=== PATIENT | female | born 1940 | race Caucasian/White ===

== ENCOUNTER → 2017-06-03 07:33 | Outpatient (CLI) | payer MEDICARE, OTHER ==
[~2017-06-03] VITALS: Ht 170.2 cm; Wt 92.3 kg
--- NOTE | ~2017-06-03 | HEMODYNAMI ---
PATIENT:LJ HUGHES MEDICAL RECORD: [id number] : 38 LOCATION:[facility] ADMISSION DATE: 06/03/17 Generatedon:06/03/201711:27 Patient name: JL HUGHES Patient #: [id number] SSN: : 1940 Date of study: 06/03/2017 Page: Of Hemodynamic Procedure Report Patient Data Patient Demographics Procedure consent was obtained First Name: JL Gender: Female Last Name: ELLEN : 1940 [facility] Initial: RUPALI Age: 77 year(s) Patient #: [id number] Race: Additional ID: [id number] Contact details [address]: [address] [place] [address] State: [place] City: [place] Zip code: [address] Past Medical History Allergies: No known allergies Admission Admission Data Admission Date: 06/03/2017 Admission Time: 7:33 Lab Results Lab Result Date: 06/03/2017 Lab Result Time: 0:00 Biochemistry Name Units Result Min Max BUN mg/dl 22 --(----)-* 7 18 Creatinine mg/dl 0.9 --(-*--)-- 0.6 1.3 CBC Name Units Result Min Max Hemoglobin g/dl 12.3 *-(----)-- 13.5 17.5 Procedure Procedure Types Cath Procedure Diagnostic Procedure C [facility] w/Coronaries FFR/IVUS Intra-Coronary IVUS Initial Procedure Description Procedure Date Procedure Date: 06/03/2017 Procedure Start Time: 11:11 Procedure End Time: 11:26 Procedure Staff Name Function Toan Zurita MD Performing Physician Joya Delacruz RT Monitor Edgar Rosen RT Scrub Kimo Morel RN Nurse Procedure Data Cath Procedure Fluoroscopy Diagnostic fluoroscopy Total fluoroscopy Time: 2.1 time: 2.1 min min Diagnostic fluoroscopy Total fluoroscopy dose: 307 dose: 307 mGy mGy Contrast Material Contrast Material Type Amount (ml) Isovue 300 58 Entry Location Entry Primary Successful Side Size Upsize Upsize Entry Closure Estevez ccessful Closure Location (Fr) 1 (Fr) 2 (Fr) Remarks Device Remarks Radial Right 6 Fr Mechanical artery Short Compression Estimated blood loss: 5 ml Diagnostic catheters Device Type Used For End Catheter Placement DIAGNOSTIC Summit 110cm 5 Procedure Fr catheter ([id number]) Procedure Complications No complications Procedure Medications Medication Administration Route Dosage Oxygen etCO2 Nasal cannula 2 l/min Heparin Flush Bag added to field 2 bags (1000units/500ml NS) 0.9% NaCl I.V. 100 ml/hr Radial Cocktail added to field 1 syringe (Verapomil 2mg/Nitro 400mcg/Heparin 1500units) Fentanyl I.V. 50 mcg Versed I.V. 1 mg Fentanyl I.V. 50 mcg Versed I.V. 1 mg Radial Cocktail I.A. 1 syringe (Verapomil 2mg/Nitro 400mcg/Heparin 1500units) Fentanyl I.V. 50 mcg Fentanyl I.V. 50 mcg Hemodynamics Rest HGB: 12.3 (g/dl) Heart Rate: 63 (bpm) Snapshots Pre Cath Intra NCS Post Cath Vital Signs Time Heart Resp SPO2 etCO2 NIBP (mmHg) Rhythm Pain Sedation Rate (ipm) (%) (mmHg) Status Level (bpm) 10:08:32 67 16 96 160/75(122) NSR 0 (11) 10(A) , No pain 10:13:20 67 16 97 0 146/66(119) NSR 0 (11) 10(A) , No pain 10:18:46 64 17 100 39.8 137/74(102) NSR 0 (11) 10(A) , No pain 10:24:08 55 17 100 37.6 147/72(99) NSR 0 (11) 10(A) , No pain 10:28:56 67 16 100 37.6 144/62(98) NSR 0 (11) 10(A) , No pain 10:33:43 53 16 99 34.5 117/58(96) NSR 0 (11) 10(A) , No pain 10:38:28 50 16 99 38.3 128/55(87) NSR 0 (11) 10(A) , No pain 10:43:12 66 17 99 37.6 124/59(89) NSR 0 (11) 10(A) , No pain 10:47:59 61 16 99 38.3 134/54(84) NSR 0 (11) 10(A) , No pain 10:52:46 73 16 99 38.3 132/62(105) NSR 0 (11) 10(A) , No pain 10:57:31 68 16 99 37.6 129/68(89) NSR 0 (11) 10(A) , No pain 11:02:13 66 16 97 0 106/67(85) NSR 0 (11) 10(A) , No pain 11:06:54 67 17 97 0 120/61(93) NSR 0 (11) 10(A) , No pain 11:11:37 69 17 96 38.3 116/62(97) NSR 0 (11) 9(A) , No pain 11:16:17 72 16 94 0 116/54(86) NSR 0 (11) 9(A) , No pain 11:20:29 74 17 95 39.1 112/57(83) NSR 0 (11) 9(A) , No pain 11:25:10 74 15 96 44.3 128/60(95) NSR 0 (11) 9(A) , No pain Medications Time Medication Route Dose Verified Delivered Reason Notes Effectiveness by by 10:29:16 Oxygen etCO2 2 l/min Toan Cristobal Per Nasal Yudith Hughes RN physician cannula 10:29:26 Heparin Flush added 2 bags Toan Cristobal used for Bag to Yudith Hughes RN procedure (1000units/500ml field NS) 10:30:02 0.9% NaCl I.V. 100 Toancitlali Cristobal Per ml/hr Yudith Hughes RN physician 10:30:15 Radial Cocktail added 1 Toan Levar used for (Verapomil to syringe Yudith Hughes RN procedure 2mg/Nitro field 400mcg/Heparin 1500units) 11:10:12 Fentanyl I.V. 50 mcg Toan Cristobal for sedation Yudith Hughes RN 11:11:00 Versed I.V. 1 mg Toan Cristobal for sedation Yudith Hughes RN 11:12:36 Fentanyl I.V. 50 mcg Toan Cristobal for sedation Yudith Hughes RN 11:12:40 Versed I.V. 1 mg Toan Cristobal for sedation Yudith Hughes RN 11:12:48 Radial Cocktail I.A. 1 Toan Joya for (Verapomil syringe Yudith Zurita MD vasodilation 2mg/Nitro 400mcg/Heparin 1500units) 11:14:21 Fentanyl I.V. 50 mcg Toan Cristobal for sedation Yudith Hughes RN 11:16:40 Fentanyl I.V. 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 9:36:33 Patient allergic to No known allergies 9:37:42 Lab Result : BUN 22 mg/dl 9:37:42 Lab Result : Hemoglobin 12.3 g/dl 9:37:42 Lab Result : Creatinine 0.9 mg/dl 9:39:48 Edgar ALICEA(R) sent for patient. Start room use. 9:39:56 Time tracking: Regular hours (M-F 7:00 - 5:00) 9:40:00 Plan of Care:Hemodynamics will remain stable., Cardiac rhythm will remain stable., Comfort level will be maintained., Respiratory function will remain adequate., Patient/ family verbilizes understanding of procedure., Procedure tolerated without complication., Recovers from procedure without complications.. 9:56:54 Is patient on blood thinner?Yes 9:57:09 LAST DOSE OF ELIQUIS ON THE 9:59:45 Patient received from Pre/Post Procedure Room to CCL 1 Alert and oriented. Tansferred to table in Supine position. 9:59:54 Warm blankets applied, and chris hugger turned on for patient comfort. 9:59:54 Correct patient and procedure confirmed by team. 9:59:55 ECG and BP/O2 sat monitors applied to patient. 10:07:32 Vital chart was started 10:07:33 Baseline sample Acquired. 10:07:39 Rhythm: sinus rhythm 10:07:41 Full Disclosure recording started 10:11:08 Baseline sample Acquired. 10:11:16 Pre-procedure instructions explained to patient. 10:11:16 Pre-op teaching completed and patient verbalized understanding. 10:11:19 Family in patients room. 10:11:22 Patient NPO since Midnight. 10:11:24 Is the patient allergic to Iodine/contrast media? No. 10:11:31 Patient diabetic? No. 10:11:34 Previous problem with sedation/anesthesia? No ? 10:11:35 Snore? Yes 10:11:36 Sleep apnea? No 10:11:37 Deviated septum? No 10:11:38 Opens mouth fully? Yes 10:11:39 Sticks out tongue? Yes 10:11:41 Airway obstruction? No ? 10:11:43 Dentures? No ? 10:11:49 Modified Elías's test Ulnar < 7 seconds 10:11:51 Patient pain scale 0/10 ?. 10:12:01 IV patent on arrival in left forearm with 0.9% NaCl at [facility]. 10:12:04 Lab results completed and on chart. 10:12:05 Alarms reviewed by R. N. 10:12:06 Sharps counted by scrub and verified by R.N. 10:12:11 Use device set Radial Dx or PCI 10:12:12 ACIST Syringe (68207) opened to sterile field. 10:12:13 ACIST Hand Control (73188) opened to sterile field. 10:12:14 ACIST Manifold (87584) opened to sterile field. 10:12:14 Tegaderm 4 x 4 (1626W) opened to sterile field. 10:12:17 Bag Decanter (2002S) opened to sterile field. 10:12:18 Medline Cath Pack ([id number]) opened to sterile field. 10:12:19 DIAGNOSTIC WIRE .035 260cm J wire (886780) opened to sterile field. 10:12:20 MBrace Wrist Support (412909992) opened to sterile field. 10:12:22 SHEATH 6Fr Prelude Radial ([id number]) opened to sterile field. 10:23:38 Zero performed for pressure channel P1 10:29:16 Oxygen 2 l/min etCO2 Nasal cannula was administered by Levar Hughes RN; Per physician; 10:29:26 Heparin Flush Bag (1000units/500ml NS) 2 bags added to field was administered by Levar Hughes RN; used for procedure; 10:30:02 0.9% NaCl 100 ml/hr I.V. was administered by Levar Hughes RN; Per physician; 10:30:15 Radial Cocktail (Verapomil 2mg/Nitro 400mcg/Heparin 1500units) 1 syringe added to field was administered by Levar Hughes RN; used for procedure; :42 --------ALL STOP TIME OUT------ : Final Timeout: patient, procedure, and site verified with staff and physician. All members of the team are in agreement. 11:09:44 Right Radial & Right Groin site verified by team. 11::47 Physical assessment completed. ASA score P 2 - A patient with mild systemic disease as per Toan Zurita MD. 11:09:51 Sedation plan: IV Moderate Sedation Medication:Versed, Fentanyl 11:10:12 Fentanyl 50 mcg I.V. was administered by Levar Hughes RN; for sedation; 11::24 LONG WAIT DUE TO DR. QUEVEDO PREVIOUS CASE 11:10:28 Procedure started. 11:11:00 Versed 1 mg I.V. was administered by Levar Hughes RN; for sedation; 11:11:25 Local anesthetic to right radial artery with Lidocaine 2% by Toan Zurita MD.INITIAL ACCESS ONLY 11:12:05 A 6 Fr Short sheath was inserted into the Right Radial artery 11:12:36 Fentanyl 50 mcg I.V. was administered by Levar Hughes RN; for sedation; 11:12:40 Versed 1 mg I.V. was administered by Levar Hughes RN; for sedation; 11:12:48 Radial Cocktail (Verapomil 2mg/Nitro 400mcg/Heparin 1500units) 1 syringe I.A. was administered by Toan Zurita MD; for vasodilation; 11:13:00 A DIAGNOSTIC Summit 110cm 5 Fr catheter (301647) was advanced over the wire and used for Procedure. 11:13:19 LV gram done using MCCLOUD 11:13:23 Injector settings: Ml/sec: 7, Volume: 15, 11:13:52 EF : 55 % 11:14:04 LCA angiography performed. 11:14:21 Fentanyl 50 mcg I.V. was administered by Levar Hughes RN; for sedation; 11:15:13 RCA angiography performed. 11:15:41 Catheter removed. 11:15:52 CHOICE PT Extra Support 182cm wire ([id number]) opened to sterile field. 11:15:58 INFLATOR Merit BasixCompak (TK3230) opened to sterile field. 11:16:36 GUIDE 6FR XBLAD 3.5 catheter ([id number]) opened to sterile field. 11:16:40 Fentanyl 50 mcg I.V. was administered by Levar Hughes RN; for sedation; 11:16:51 6 Fr XBLAD 3.5 guide catheter was inserted over the wire 11:17:14 CHOICE ES 182 wire advanced. 11:17:25 Wire advanced across lesion. 11:17:29 IVUS catheter advanced over wire. 11:18:53 Gilbert [place] Eagleye IVUS Catheter (88880X) opened to sterile field. 11:18:58 IVUS PASS TO THE OSTIUM OF THE LAD AND THE CIRC LESION PERFORMED 11:18:58 IVUS pass to LAD lesion performed. 11:18:59 IVUS catheter removed over wire. 11:19:10 Wire removed. 11:19:11 Guide catheter removed. 11:19:18 Procedure ended.(Physican Out) 11:23:01 Sheath removed intact; hemostasis achieved with Mechanical Compression to the Right Radial artery. 11:23:07 Fluoroscopy time 02.10 minutes. 11:23:11 Fluoroscopy dose: 307 mGy 11:23:11 Flurop Dose total: 307 11:23:19 Contrast amount:Isovue 300 58ml. 11:23:20 Sharps counted by scrub and verified by R.N. 11:23:22 TR band inflated with 10cc of air. 11:23:54 Insertion/operative site no bleeding no hematoma. 11:23:58 Post-procedure physical assessment completed. ASA score P 2 - A patient with mild systemic disease as per Toan Zurita MD. 11:24:02 Post procedure rhythm: unchanged. 11:24:03 Estimated blood loss: 5 ml 11:24:05 Post procedure instruction explained to patient.Patient verbalizes understanding. 11:24:05 Patient needs reinforcement of post procedure teaching. 11:24:16 Procedure type changed to Cath procedure, Diagnostic procedure, LHC, LHC w/Coronaries, FFR/IVUS, Intra-Coronary IVUS Initial 11:26:14 TR BAND Standard ([id number]) opened to sterile field. 11:26:19 Procedure and supply charges have been captured, reviewed, submitted and are correct. 11:26:21 Procedure Complication : No complications 11:26:24 Vital chart was stopped 11::24 See physician's report for complete and final results. 11::26 Report given to Pre/Post Procedure Room. 11::29 Patient transfered to Pre/Post Procedure Room with Bed. 11::30 Procedure ended. 11::30 Full Disclosure recording stopped 11::35 End room use (Document Last) Device Usage Item Name Manufacture Quantity Catalog Number Hospital Part Current M inimal Lot# / Charge Number Stock Stock Serial# Code ACIST Syringe Acist 1 70485 207338 [id number] 2 0 (27821) Medical Systems Right On Interactive ACIST Hand Acist 1 83865 601877 112819 108032 5 Control (70327) Medical Systems Right On Interactive ACIST Manifold Acist 1 62193 355505 031551 916328 5 (50718) Medical Systems Right On Interactive Tegaderm 4 x 4 3M 1 1626W 695003 782590 510570 5 (1626W) Bag Decanter Microtek 1 2001S 133122 78699 915784 5 (2001S) [employer] Inc. Medline Cath Cardinal 1 [id number] 148833 33474 218811 5 Pack Health ([id number]) DIAGNOSTIC WIRE St Tj 1 914276 238823 187217 453922 3 0 .035 260cm J wire (888273) MBrace Wrist Advanced 1 140-0250-00 278322 19530 853508 5 Support Vascular ([id number]) Dynamics SHEATH 6Fr Merit 1 [id number] 415285 957432 313494 5 Prelude Radial Medical ([id number]) DIAGNOSTIC Terumo 1 40-9793 937996 797173 641527 5 Summit 110cm 5 Fr catheter (609715) CHOICE PT Extra [place] 1 [id number] 037401 684118 583716 5 Support 182cm Scientific wire ([id number]) INFLATOR Merit Merit 1 JN8916 632452 431741 790968 1 5 BasixQRxPharma Medical (PM7298) GUIDE 6FR XBLAD Cardinal 1 [id number] 773617 488635 899947 1 0 3.5 catheter Health (92048753) Gilbert Gilbert 1 97038T 310628 876134 054016 8 [place] Eagley[place] IVUS Catheter (04376U) TR BAND Terumo 1 [id number] 400488 645270 970396 4 0 Standard ([id number]) Signature Audit [place] Stage Time Signature Unsigned Intra-Procedure 06/03/2017 Joya Delacruz 11:27:33 AM RT(R) Signatures Monitor : Joya Delacruz Signature : RT Date : Time : [place] [address] [place] [address]
--- NOTE | ~2017-06-03 | HP ---
PATIENT: JL HUGHES MEDICAL RECORD: [id number] ACCOUNT: [id number] LOCATION:[place] : 38 ADMISSION DATE: 06/03/17 HISTORY AND PHYSICAL EXAMINATION ADMITTING DIAGNOSES: 1. Chest pain compatible with angina. 2. Abnormal nuclear stress test. 3. Hypertension. 4. Paroxysmal atrial fibrillation. HISTORY OF PRESENT ILLNESS: Ms. Hughes presents with continued chest pain despite having good control of her atrial fibrillation in sinus rhythm. Stress testing was performed. She has perfusion defect that is anteriorly and laterally, now brought for cardiac catheterization. REVIEW OF SYSTEMS: The patient reports easy bruising but reports no swollen glands. The patient reports no fever, no night sweats, no significant weight gain, no significant weight loss. No significant exercise tolerance. The patient reports no dry eyes, no irritation, no vision change. Patient reports no difficulty hearing and no ear pain. Patient reports no frequent nose bleeds or nose and sinus problems. Patient reports on arm pain on exertion. No shortness of breath while lying down. No history of heart murmur. Patient reports no cough, no wheezing or coughing up blood. Patient reports no abdominal pain, no vomiting. Normal appetite. No diarrhea and not vomiting blood. No nausea and no constipation. Patient reports no incontinence. No difficulty urinating. No hematuria. No increased frequency. Patient reports no muscle aches. No weakness, no arthralgias, no back pain. No swelling of the extremities. Patient reports no abnormal mole, no jaundice, no rashes. Reports no loss of consciousness. No weakness and no numbness. No seizures, dizziness, or headaches. The patient reports no depression, no sleep disturbance, feeling safe in a relationship and no alcohol abuse. Patient reports on fatigue. Reports no runny nose or sinus pressure. No itching, no hives, and no frequent sneezing. PHYSICAL EXAMINATION: GENERAL APPEARANCE: Well-nourished, well-developed, appears stated age. Level of distress, comfortable. PSYCHIATRIC: Mental status, alert, normal affect. Orientation, oriented to time, place and person. EYES: Lids and conjunctiva, noninjected. No discharge, no pallor. ENT: Lips, teeth, gums, normal dentition. Oropharynx, no cyanosis, no pallor. NECK: Carotid arteries, bilateral normal upstroke, no bruits, no thrills. JUGULAR VEINS: No jugular venous pressure or distention. CERVICAL LYMPH NODES: Nontender, nonenlarged. THYROID: Not enlarged. Nontender. No nodules. LUNGS: Respiratory effort, unlabored. CHEST: Normal curvature. No thoracic deformity. No chest wall tenderness. Percussion, resonant. Auscultation, clear. No wheezes, no rales, no rhonchi. CARDIOVASCULAR: Precordial exam, nondisplaced. No heaves or pericardial thrills. Rate and rhythm, regular. Heart sounds, normal S1, normal S2. No S3, no gallop, no rub. Systolic murmur, not heard. Diastolic murmur, not heard. EXTREMITIES: No cyanosis, no edema. Peripheral pulses, full and equal in all extremities, except as noted. No bruits appreciated. ABDOMEN: Soft, nondistended. Normal aorta. No bruit. Nontender. No masses. HISTORY AND PHYSICAL [id number] [id number] Liver, nontender, no hepatomegaly. Spleen, nontender, no splenomegaly. MUSCULOSKELETAL: No joint tenderness. No joint swelling. No erythema. NEUROLOGICAL: Normal gait, normal strength, normal tone. SKIN: Warm and dry. OVERALL IMPRESSION: Chest pain compatible with angina and abnormal nuclear stress test. We will proceed with coronary angiography. Further care depends upon the findings of the angiography. TRANSINT:[id number] Voice Confirmation ID: [id number] DOCUMENT ID: [id number] DENEEN FOSTER MD at 1351 CC: [id number] DICTATION DATE: 06/03/17 1121 SOLAR SALES AMBASSADOR: 06/03/17 [address] [place] [address]
--- NOTE | ~2017-06-03 | OP ---
PATIENT NAME: JL HUGHES MEDICAL RECORD: [id number] :38 LOCATION:D.CAT ADMISSION DATE: SURGEON: DENEEN FOSTER MD DATE OF OPERATION: 06/03/2017 PROCEDURES: 1. Intravascular ultrasound of left circumflex. 2. Intravascular ultrasound of the LAD. 3. Left heart catheterization. 4. Selective coronary angiography. 5. Left ventriculogram. INDICATION: Angina, coronary artery disease, abnormal nuclear stress test. DESCRIPTION OF PROCEDURE: After informed consent was obtained and after a detailed description of risks, benefits as well as alternative therapies, the patient elected to proceed with angiogram and heart catheterization. The right radial area was prepped and draped in normal sterile fashion. Right radial artery was cannulated via modified Seldinger technique with placement of 6-Jamaican sheath. All catheters exchanged through this sheath. FINDINGS: Left ventriculogram was performed in standard 30-degree MCCLOUD view, reveals good cardiac wall motion throughout all segments. Overall ejection fraction estimated 60%. SELECTIVE CORONARY ANGIOGRAPHY: 1. Left main is with no significant angiographic disease. 2. Left anterior descending has no greater than 10% stenosis at the ostium confirmed by intravascular ultrasound. 3. The left circumflex has no greater than 10% stenosis at the ostium confirmed by intravascular ultrasound. The LAD and circumflex elsewise have no significant disease. 4. Right coronary artery has moderate irregularities, but no flow-limiting stenosis. OVERALL IMPRESSION: No significant coronary artery disease is present. Normal LV function. Center medical management on treatment of noncardiac chest pain. TRANSINT:[id number] Voice Confirmation ID: [id number] DOCUMENT ID: [id number] DENEEN FOSTER MD at 1351 CC: [id number] DICTATION DATE: 06/03/17 1122 COMMISSION SALES ASSOCIATE: 06/03/17 [id number] [place] [address]
[~2017-06-03 07:33] MED LIST: AMBIEN5 MG PO; BETAPACE 80 MG80 MG PO; BIOTIN5 MG PO; CALTRATE 600 M600 M1 PO; CELEBREX200 MG PO; ELIQUIS5 MG PO; LASIX20 MG PO; LISINOPRIL10 MG PO; NEURONTIN 400400 MG PO; OMEGA-3100 MG PO; PRILOSEC20 MG PO; TRAZODONE HCL50 MG PO; VITAMIN D2000 UNIT PO
[2017-06-03 08:22] VITALS: BP 142/63; Ht 170.2 cm; Wt 92.3 kg
[2017-06-03 08:36] LABS: EOSINOPHILS 3.1 % (0-7); HEMATOCRIT 38.5 % (36.0-48.0); HEMOGLOBIN 12.3 g/dL (12-16); IMMATURE GRANULOCYTES 0.3 % (0-5); MCH 28.9 pg (26.0-34.0); MCHC 31.9 g/dL (31.0-37.0); MCV 90.4 fL (80.0-100.0); MONOCYTES 14.4 % (2-11); NEUTROPHILS 55.2 % (40-80); PLATELET COUNT 174 10x3/uL (130-400); RBC 4.26 10x6/uL (4.00-5.40); RDW 14.3 % (11.5-14.5); WBC 6.2 10x3/uL (4.8-10.8)
[2017-06-03 08:47] LABS: ANION GAP 12.2 mmol/L (8-16); CALCIUM 8.6 mg/dL (8.5-10.1); CARBON DIOXIDE 27.3 mmol/L (21.0-32.0); CREATININE - SERUM 0.9 mg/dL (0.6-1.3); POTASSIUM - SERUM 4.5 mmol/L (3.5-5.1)
== END | disposition home or self-care (01) ==
LOC: D.CATH 07:33
PROVIDERS: Internal Medicine Interventional Cardiology
DX: I20.9 Angina pectoris, unspecified (principal); R94.30 Abnormal result of cardiovascular function study, unspecified; I10 Essential (primary) hypertension; I48.0 Paroxysmal atrial fibrillation; Z01.812 Encounter for preprocedural laboratory examination

== ENCOUNTER 2017-11-13 16:10 | Emergency (ER) | payer MEDICARE, OTHER ==
[~2017-11-13] VITALS: Ht 170.2 cm; Wt 90.9 kg
[2017-11-13 16:15] VITALS: Ht 170.2 cm; Wt 90.9 kg
[2017-11-13 17:31] LABS: BASOPHILS 0.8 % (0-2); HEMATOCRIT 33.5 % (36.0-48.0); HEMOGLOBIN 10.9 g/dL (12-16); IMMATURE GRANULOCYTES 0.5 % (0-5); LYMPHOCYTES 24.3 % (15-50); MCH 30.4 pg (26.0-34.0); MCHC 32.5 g/dL (31.0-37.0); MCV 93.6 fL (80.0-100.0); MEAN PLATELET VOLUME 9.2 fL (7.4-10.4); MONOCYTES 12.3 % (2-11); NEUTROPHILS 59.1 % (40-80); PLATELET COUNT 164 10x3/uL (130-400); RBC 3.58 10x6/uL (4.00-5.40); RDW 13.6 % (11.5-14.5); WBC 6.3 10x3/uL (4.8-10.8)
[2017-11-13 17:38] LABS: APTT 27.4 SECONDS (22.8-39.4); INR 1.17 (0.85-1.17); PROTIME 14.5 SECONDS (11.6-15.0)
[2017-11-13 17:45] LABS: ALBUMIN 2.8 g/dL (3.4-5.0); ALKALINE PHOSPHATASE 41 U/L (46-116); ALT (SGPT) 16 U/L (10-68); BILIRUBIN - TOTAL 0.22 mg/dL (0.2-1.3); CALC OSMOLALITY 282 mosm/kg (275-300); CALCIUM 8.1 mg/dL (8.5-10.1); CARBON DIOXIDE 29.1 mmol/L (21.0-32.0); CHLORIDE - SERUM 106 mmol/L (98-107); CREATININE - SERUM 0.8 mg/dL (0.6-1.3); GLUCOSE 104 mg/dL (74-106); POTASSIUM - SERUM 4.3 mmol/L (3.5-5.1); PROTEIN - SERUM 6.1 g/dL (6.4-8.2); SODIUM 141 mmol/L (136-145); UREA NITROGEN 19 mg/dL (7-18); eGFR NON AFRICAN AMERICAN 73 mL/min (90-120)
[2017-11-13 17:50] LABS: APPEARANCE CLEAR (CLEAR); BILIRUBIN NEGATIVE (NEGATIVE); COLOR STRAW (YELLOW); GLUCOSE NEGATIVE (NEGATIVE); KETONE NEGATIVE (NEGATIVE); NITRITE NEGATIVE (NEGATIVE); PROTEIN NEGATIVE (NEGATIVE); SPECIFIC GRAVITY 1.005 (1.005-1.020); UROBILINOGEN NORMAL (NORMAL)
[2017-11-13 17:54] LABS: MAGNESIUM - SERUM 1.9 mg/dL (1.8-2.4); PRO BNP 1202 pg/mL (0-450)
[2017-11-13 17:59] LABS: TROPONIN-I < 0.017 ng/mL (0.000-0.060)
[2017-11-13] MEDS ORDERED: NORCO 5/325 TAB1 TAB PO (18:30)
[2017-11-13] MEDS ORDERED: ROBAXIN500 MG PO (18:30)
[2017-11-13 19:02] VITALS: BP 142/51
== END 2017-11-13 19:02 | disposition home or self-care (01) ==
LOC: D.ER 16:10
PROVIDERS: Family Medicine
DX: S00.83XA Contusion of other part of head, initial encounter (principal); S80.02XA Contusion of left knee, initial encounter; S80.01XA Contusion of right knee, initial encounter; W18.31XA Fall on same level due to stepping on an object, initial encounter; Y93.89 Activity, other specified; Y92.019 Unspecified place in single-family (private) house as the place of occurrence of the external cause; D64.9 Anemia, unspecified; M54.2 Cervicalgia; I11.0 Hypertensive heart disease with heart failure; I50.9 Heart failure, unspecified; I73.9 Peripheral vascular disease, unspecified

== ENCOUNTER 2018-08-20 16:50 | Inpatient (IN) | payer MEDICARE, OTHER ==
[~2018-08-20] VITALS: Ht 170.2 cm; Wt 95.6 kg
[2018-08-20] VITALS (9 sets, daily range): BP systolic 108–165; BP diastolic 71–108; BMI 33.9
[~2018-08-20 16:50] MED LIST changes: +NORCO 5/325 TAB1 TAB PO; +ROBAXIN500 MG PO
[2018-08-20 17:17] LABS: BASOPHILS 0.5 % (0-2); EOSINOPHILS 0.9 % (0-7); HEMATOCRIT 40.5 % (36.0-48.0); HEMOGLOBIN 12.8 g/dL (12-16); IMMATURE GRANULOCYTES 0.3 % (0-5); LYMPHOCYTES 6.9 % (15-50); MCH 29.6 pg (26.0-34.0); MCHC 31.6 g/dL (31.0-37.0); MCV 93.8 fL (80.0-100.0); MEAN PLATELET VOLUME 10.6 fL (7.4-10.4); MONOCYTES 9.3 % (2-11); NEUTROPHILS 82.1 % (40-80); RBC 4.32 10x6/uL (4.00-5.40); RDW 13.7 % (11.5-14.5); WBC 7.4 10x3/uL (4.8-10.8)
[2018-08-20 17:28] LABS: PLATELET COUNT 129 10x3/uL (130-400)
[2018-08-20 17:46] LABS: ALBUMIN 3.4 g/dL (3.4-5.0); ALKALINE PHOSPHATASE 61 U/L (46-116); ALT (SGPT) 24 U/L (10-68); BILIRUBIN - TOTAL 0.71 mg/dL (0.2-1.3); CALC OSMOLALITY 284 mosm/kg (275-300); CARBON DIOXIDE 28.6 mmol/L (21.0-32.0); CHLORIDE - SERUM 106 mmol/L (98-107); CREATININE - SERUM 0.9 mg/dL (0.6-1.3); GLUCOSE 143 mg/dL (74-106); POTASSIUM - SERUM 4.4 mmol/L (3.5-5.1); PROTEIN - SERUM 7.1 g/dL (6.4-8.2); SODIUM 140 mmol/L (136-145); UREA NITROGEN 23 mg/dL (7-18); eGFR NON AFRICAN AMERICAN 64 mL/min (90-120)
[2018-08-20 17:50] LABS: APTT 27.7 SECONDS (22.8-39.4); INR 1.32 (0.85-1.17); PROTIME 15.9 SECONDS (11.6-15.0)
[2018-08-20 17:58] LABS: CKMB 1.3 U/L (0.0-3.6); CREATINE KINASE 60 UL (21-215); PRO BNP 7427 pg/mL (0-450); TROPONIN-I 0.023 ng/mL (0.000-0.060)
[2018-08-20] MEDS ORDERED: DONEPEZIL HCL10 MG PO (21:57)
[2018-08-20] MEDS ORDERED: ROCALTROL0.5 MCG PO (21:57)
[2018-08-20] MEDS ORDERED: ALENDRONAT70 MG/75 M PO (21:58)
[2018-08-20] MEDS ORDERED: COREG6.25 MG PO (21:59)
--- NOTE | 2018-08-20 23:01 | NUR ---
ADMISSION ASESSMENT, HISTORY AND HOME MED LIST COMPLETED. IV TO L WRIST WITH CARDIZEM DRIP AT 10MG/HR AND BUMEX DRIPA T 1MG/HR. IV PATENT. LUNGS DIMINISHED IN BASES BILAT. PT CONFUSED. CAF PER CM HR 99. VSS. SR UP X2,CALL LIGHT WITHIN REACH AND BED ALARM ON.
[2018-08-21] VITALS: BP 127/68
--- NOTE | 2018-08-21 00:07 | NUR ---
ASSISTED PT TO BSC. PT CONFUSED AND UNSTEADY ON FEET. VOIDED 600CC OF CLEAR URINE. ASSISTED BACK TO BED. SR UP X2, CALL LIGHT WITHIN REACH AND BED ALARM ON.
--- NOTE | 2018-08-21 01:54 | NUR ---
PT AWAKE; DENIES ANY DISCOMFORT. SR UP X2, CALL LIGHT WITHIN REACH AND BED ALARM ON.
[2018-08-21 04:00] VITALS: BP 115/61
--- NOTE | 2018-08-21 04:11 | NUR ---
ASSISTED TO BSC. VOIDED 500CC OF CLEAR URINE. ASSISTED BACK TO BED. SR UP X2,CALL LIGHT WITHIN REACH AND BED ALARM ON.
[2018-08-21 05:22] LABS: BASOPHILS 0.7 % (0-2); EOSINOPHILS 1.7 % (0-7); HEMATOCRIT 40.9 % (36.0-48.0); HEMOGLOBIN 13.2 g/dL (12-16); IMMATURE GRANULOCYTES 0.5 % (0-5); LYMPHOCYTES 10.8 % (15-50); MCH 29.6 pg (26.0-34.0); MCHC 32.3 g/dL (31.0-37.0); MONOCYTES 17.5 % (2-11); NEUTROPHILS 68.8 % (40-80); PLATELET COUNT 124 10x3/uL (130-400); RBC 4.46 10x6/uL (4.00-5.40); RDW 13.7 % (11.5-14.5)
[2018-08-21 05:24] LABS: MCV 91.7 fL (80.0-100.0)
--- NOTE | 2018-08-21 05:33 | NUR ---
EKG DONE. PT UNABLE TO BE STILL. PT ASSISTED TO BSC. VOIDED 600CC OF CLEAR URINE. ASSISTED BACK TO BED. PT STATES BREATHING MUCH BETTER THIS AM. NEEDS MET; WILL CONTINUE TO MONITOR.
[2018-08-21 05:51] LABS: CALC OSMOLALITY 288 mosm/kg (275-300); CALCIUM 8.5 mg/dL (8.5-10.1); CARBON DIOXIDE 34.8 mmol/L (21.0-32.0); CHLORIDE - SERUM 100 mmol/L (98-107); CREATININE - SERUM 0.9 mg/dL (0.6-1.3); GLUCOSE 104 mg/dL (74-106); PRO BNP 8246 pg/mL (0-450); SODIUM 144 mmol/L (136-145); TROPONIN-I < 0.017 ng/mL (0.000-0.060); UREA NITROGEN 18 mg/dL (7-18); eGFR NON AFRICAN AMERICAN 64 mL/min (90-120)
[2018-08-21 05:54] LABS: POTASSIUM - SERUM 3.3 mmol/L (3.5-5.1)
--- NOTE | 2018-08-21 07:24 | NUR ---
REPORT RECEIVED. WILL CONTINUE WITH POC. PT CURRENTLY LYING SEMI FOWLERS. CALL LIGHT W/I REACH. FAMILY AT BEDSIDE. RR EVEN AND UNLABORED ON 4L 02. BUMEX INFUSING @2.5 AND CARDIZEM INFUSING @10 VIA L.WRIST PIV. NO S/S OF DISTRESS NOTED. PT DENIES ANY NEEDS AT THIS TIME. WILL CTM.
[2018-08-21 09:12] VITALS: BP 126/63
--- NOTE | 2018-08-21 10:39 | NUR ---
PREVIOUS PIV INFILTRATED. REMOVED PIV WITH CATHETER TIP FULLY INTACT. JAMES SHER INITIATED NEW PIV TO THE LEFT WRIST 22 GA. RESTARTED CARDIZEM AND BUMEX. WILL CTM.
--- NOTE | 2018-08-21 14:39 | MORECARE ---
CASE MANAGEMENT DISCHARGE SUMMARY PATIENT: JL HUGHES UNIT: [id number] ADM DATE: 08/20/18 AGE: 78 : 39 SEX: F ROOM/BED: D.3607 AUTHOR: DOUGLAS,DOC PHYSICIAN: REFERRING PHYSICIAN: SEBAS DE LA CRUZ MD DATE OF SERVICE: 08/21/18 Discharge Plan Patient Name: JL HUGHES [facility] : 1940 Planned Disposition: Home Anticipated Discharge Date: Discharge Date: Expected LOS: Initial Reviewer: [email or web address] Initial Review Date: 08/21/2018 Generated: 08/21/18 3:38 pm DCP- Discharge Planning Updated by [email or web address]: Sophia Larson on 08/21/18 1:[address] Patient Name: JL HUGHES Admission Status: ER Accout number: [id number] Admission Date: 08-20-2018 : 1940 Admission Diagnosis: Attending: SEBAS DE LA CRUZ Current LOS: 1 Anticipated DC Date: Planned Disposition: Home Primary Insurance: MEDICARE A & B Discharge Planning Comments: CM met with patient to complete initial dc planning assessment. CM educated patient on the CM role and verbal consent given by patient to complete assessment. CM verified patient's address, phone number, and emergency contact phone numbers. Patient lives at home alone and reports she is independent in her care. At discharge patient plans to return home and feels this is a safe discharge. CM discussed availability of home health, rehab services, and medical equipment. Patient denied known discharge needs at this time.. . CM will continue to follow and will assist as needed with dc plans/needs. Paperboard Machine Operator: Sophia Larson DCPIA - Discharge Planning Initial Assessment Updated by [email or web address]: Sophia Larson on 08/21/18 2:37 pm * Is the patient Alert and Oriented? Yes * How many steps to enter\exit or inside your home? * PCP combs * [facility] * Preadmission Environment Home with Family * ADLs Independent * Equipment Walker * List name and contact numbers for known caregivers / representatives who currently or will assist patient after discharge: friend Sandie [phone] * Verbal permission to speak to the caregivers and representatives has been obtained from the patient. Yes * Additional services required to return to the preadmission environment? No * Can the patient safely return to the preadmission environment? Yes * Has this patient been hospitalized within the prior 30 days at any hospital? No Patient Name: JL HUGHES Page [id number] at 1439 All edits/amendments must be made on the electronic document DICTATION DATE: 08/21/181437 CHEF ASSISTANT: SARAI 08/21/181437 RPT#: [id number] DC DATE: STATUS: ADM IN [facility] [address] [place] [address] END OF REPORT
[2018-08-21 15:42] VITALS: BP 130/71
--- NOTE | 2018-08-21 16:35 | NUR ---
I have reviewed this patient and I concur with the Shift Assessment completed by the Licensed Practical Nurse today this shift.
[2018-08-21 16:49] LABS: MAGNESIUM - SERUM 1.6 mg/dL (1.8-2.4); T4 THYROXIN - FREE 1.22 ng/dL (0.76-1.46); THYROID STIMULATING HORMONE 3.15 uIU/mL (0.36-3.74)
--- NOTE | 2018-08-21 19:15 | NUR ---
ASSESSMENT COMPLETE. PT A&O. RESPERATIONS EVEN ON RA. IV TO LEFT WRIST WITH CARDIZEM AT 10 AND BEMEX AT 2.5 CC/HR. IV SITE CLEAN AND DRY. PT CURRENTLY DENIES PAIN OR NEEDS, BED LOW, CL IN REACH.
--- NOTE | 2018-08-21 19:42 | NUR ---
NOTIFIED BY MT THAT PTS HR WAS INCREASING UP INTO THE 170-180 RANGE, ENTERED ROOM AND PT WAS AMBULATING FROM HER BED TO THE BR. PT STATED THAT SHE FELT FINE, OFFERED PT ASSISTANCE BACK TO BED, PT DECLINED AT THIS TIME, AND STATED THAT SHE WILL CALL IF NEEDING ANY HELP.
--- NOTE | 2018-08-21 21:11 | NUR ---
HS MEDS GIVEN WITH FRESH ICE WATER. PT DENIES PAIN OR NEEDS.
[2018-08-21 21:12] VITALS: BP 125/69
--- NOTE | 2018-08-21 22:38 | NUR ---
PT UP TO BR.
[2018-08-22] VITALS: BP 104/68
[2018-08-22 04:00] VITALS: BP 113/70
[2018-08-22 08:45] VITALS: BP 124/62
--- NOTE | 2018-08-22 09:16 | NUR ---
PT HEART RATE PER TELEMETRY 143-180 UNCONTROLLED A-FIBB. INCREASED CARDIZEM DRIP TO 15ML/HR. WILL CONTINUE TO MONITOR.
[2018-08-22 11:29] VITALS: BP 126/65
--- NOTE | 2018-08-22 14:53 | NUR ---
PT COMPLAINS MAG IS BURNING. IV STOPPED. PRN MAG GIVEN. WILL CONTINUE TO MONITOR.
[2018-08-22 15:05] VITALS: BP 124/72
--- NOTE | 2018-08-22 17:45 | NUR ---
RESTS IN BED WITH CALL LIGHT IN REACH. CARDIAEM GTT INFUSING. TELEMETRY UCAF. WILL CONT. TO MONITOR.
--- NOTE | 2018-08-22 19:01 | NUR ---
UP WITH ASSIST TO BR.
--- NOTE | 2018-08-22 19:28 | NUR ---
ASSESSMENT COMPLETE, A&O. RESPERATIONS EVEN ON RA. IV TO LEFT WRIST WITH CARDIZEM INFUSING AT 15 AND BUMEX AT 2.5 CC/HR. PT CURRENTLY DENIES PAIN OR NEEDS, BED LOW, CL IN REACH.
--- NOTE | 2018-08-22 21:06 | NUR ---
HS MEDS GIVEN WITH FRESH ICE WATER. PT DENIES PAIN OR NEEDS.
[2018-08-22 22:14] VITALS: BP 137/89
[2018-08-23 01:01] VITALS: BP 113/79
--- NOTE | 2018-08-23 02:37 | NUR ---
RESTING WITH EYES CLOSED, RESPERATIONS EVEN, NO S/S DISTRESS NOTED.
[2018-08-23 05:16] VITALS: BP 107/60
[2018-08-23 06:57] LABS: BASOPHILS 0.7 % (0-2); EOSINOPHILS 3.3 % (0-7); HEMATOCRIT 42.1 % (36.0-48.0); HEMOGLOBIN 13.7 g/dL (12-16); IMMATURE GRANULOCYTES 0.3 % (0-5); LYMPHOCYTES 30.7 % (15-50); MCH 29.5 pg (26.0-34.0); MCHC 32.5 g/dL (31.0-37.0); MCV 90.7 fL (80.0-100.0); MEAN PLATELET VOLUME 9.6 fL (7.4-10.4); MONOCYTES 17.6 % (2-11); NEUTROPHILS 47.4 % (40-80); RBC 4.64 10x6/uL (4.00-5.40); WBC 6.7 10x3/uL (4.8-10.8)
[2018-08-23 07:14] LABS: PLATELET COUNT 156 10x3/uL (130-400)
[2018-08-23 07:17] LABS: ANION GAP 10.9 mmol/L (8-16); CARBON DIOXIDE 33.2 mmol/L (21.0-32.0); CREATININE - SERUM 1.3 mg/dL (0.6-1.3); MAGNESIUM - SERUM 1.9 mg/dL (1.8-2.4); POTASSIUM - SERUM 3.1 mmol/L (3.5-5.1)
--- NOTE | 2018-08-23 07:52 | NUR ---
REPORT RECIEVED. PT LYING SEMI FOWLERS RR EVEN AND UNLABORED. PT ON 3L NC. NO DISTRESS NOTED. SIDE RAILS UP X2, CALL LIGHT WITHIN REACH. L WRIST PIV INFUSING CARDIZEM @ 15 AND BUMEX @ 2.5. WILL CTM.
[2018-08-23 08:41] VITALS: BP 116/65
[2018-08-23 12:04] VITALS: BP 123/71
--- NOTE | 2018-08-23 12:23 | NUR ---
I have reviewed this patient and I concur with the Shift Assessment completed by the Licensed Practical Nurse today this shift.
[2018-08-23 14:24] LABS: APPEARANCE CLEAR (CLEAR); BILIRUBIN NEGATIVE (NEGATIVE); COLOR YELLOW (YELLOW); GLUCOSE NEGATIVE (NEGATIVE); KETONE NEGATIVE (NEGATIVE); NITRITE NEGATIVE (NEGATIVE); PROTEIN NEGATIVE (NEGATIVE); UROBILINOGEN NORMAL (NORMAL)
[2018-08-23 15:46] VITALS: BP 119/62
--- NOTE | 2018-08-23 16:51 | NUR ---
NEW PIV INITIATED TO THE RIGHT HAND 22 GA X1 ATTEMPT. REMOVED PREVIOUS PIV WITH CATHETER TIP FULLY INTACT. PT DENIES ANY NEEDS. WILL CTM.
[2018-08-23 20:00] VITALS: BP 117/69
[2018-08-24] VITALS: BP 114/54
[2018-08-24 04:00] VITALS: BP 96/53
[2018-08-24 06:00] LABS: BASOPHILS 0.8 % (0-2); EOSINOPHILS 4.7 % (0-7); IMMATURE GRANULOCYTES 0.3 % (0-5); LYMPHOCYTES 32.1 % (15-50); MCH 29.3 pg (26.0-34.0); MCHC 32.5 g/dL (31.0-37.0); MCV 90.3 fL (80.0-100.0); MEAN PLATELET VOLUME 9.7 fL (7.4-10.4); MONOCYTES 15.9 % (2-11); NEUTROPHILS 46.2 % (40-80); PLATELET COUNT 152 10x3/uL (130-400); RBC 4.43 10x6/uL (4.00-5.40); RDW 13.7 % (11.5-14.5); WBC 6.2 10x3/uL (4.8-10.8)
[2018-08-24 06:32] LABS: ANION GAP 9.5 mmol/L (8-16); CALCIUM 7.7 mg/dL (8.5-10.1); CARBON DIOXIDE 35.7 mmol/L (21.0-32.0); CREATININE - SERUM 1.1 mg/dL (0.6-1.3); MAGNESIUM - SERUM 1.9 mg/dL (1.8-2.4); POTASSIUM - SERUM 3.2 mmol/L (3.5-5.1)
--- NOTE | 2018-08-24 07:30 | NUR ---
ALERT AND ORIENTED. TELEMERTY SHOWS AFIB 86. FORGETFUL AT TIMES. O2 AT 3 L/M PER NC. IV TO RIGHT LUCAS WITH CARDIZEM AT 15 AND BUMEX AT 2.5. LEGGS DISCOLORED BELOW CALVES. BED ALARM ON. FAMILY AT BEDSIDE. SR UP WITH CALL LIGHT IN REACH. WILL MONITOR
[2018-08-24 08:49] VITALS: BP 119/70
[2018-08-24 12:25] VITALS: BP 116/82
--- NOTE | 2018-08-24 12:27 | NUR ---
I have reviewed this patient and I concur with the Shift Assessment completed by the Licensed Practical Nurse today this shift.
[2018-08-24 16:39] VITALS: BP 118/74
--- NOTE | 2018-08-24 16:40 | MORECARE ---
CASE MANAGEMENT DISCHARGE SUMMARY PATIENT: JL HUGHES UNIT: [id number] ADM DATE: 08/20/18 AGE: 78 : 39 SEX: F ROOM/BED: D.3010 AUTHOR: DOUGLAS,DOC PHYSICIAN: REFERRING PHYSICIAN: SEBAS DE LA CRUZ MD DATE OF SERVICE: 08/24/18 Discharge Plan Patient Name: JL HUGHES Facility: [facility]:[place] : 1940 Planned Disposition: Home Anticipated Discharge Date: Discharge Date: Expected LOS: Initial Reviewer: [email or web address] Initial Review Date: 08/21/2018 Generated: 08/24/18 5:39 pm DCP- Discharge Planning Updated by [id number]: Sophia Larson on 08/21/18 1:[address] Patient Name: JL HUGHES Admission Status: ER Accout number: [id number] Admission Date: 08-20-2018 : 1940 Admission Diagnosis: Attending: SEBAS DE LA CRUZ Current LOS: 1 Anticipated DC Date: Planned Disposition: Home Primary Insurance: MEDICARE A & B Discharge Planning Comments: CM met with patient to complete initial dc planning assessment. CM educated patient on the CM role and verbal consent given by patient to complete assessment. CM verified patient's address, phone number, and emergency contact phone numbers. Patient lives at home alone and reports she is independent in her care. At discharge patient plans to return home and feels this is a safe discharge. CM discussed availability of home health, rehab services, and medical equipment. Patient denied known discharge needs at this time.. . CM will continue to follow and will assist as needed with dc plans/needs. Plastic Parts Designer: Sophia Larson DCPIA - Discharge Planning Initial Assessment Updated by [email or web address]: Sophia Larson on 08/21/18 2:37 pm * Is the patient Alert and Oriented? Yes * How many steps to enter\exit or inside your home? * [facility] combs [facility] * Preadmission Environment Home with Family * ADLs Independent * Equipment Walker * List name and contact numbers for known caregivers / representatives who currently or will assist patient after discharge: friend Sandie [phone] * Verbal permission to speak to the caregivers and representatives has been obtained from the patient. Yes * Additional services required to return to the preadmission environment? No * Can the patient safely return to the preadmission environment? Yes * Has this patient been hospitalized within the prior 30 days at any hospital? No External Providers External Provider: [facility] Next Contact Date: 08/24/2018 Service Request Date: Service Type: Resolution: Reviewer: Comments: Last DP export: 08/21/18 1:39 p Patient Name: JL HUGHES Page [phone] at 1640 All edits/amendments must be made on the electronic document DICTATION DATE: 08/24/181638 COLLEGE ARCHIVIST: SARAI 08/24/181638 RPT#: [id number] DC DATE: STATUS: ADM IN [facility] [address] [place] [address] END OF REPORT
--- NOTE | 2018-08-24 16:48 | MORECARE ---
CASE MANAGEMENT DISCHARGE SUMMARY PATIENT: JL HUGHES UNIT: [id number] ADM DATE: 08/20/18 AGE: 78 : 39 SEX: F ROOM/BED: D.7752 AUTHOR: DOUGLAS,DOC PHYSICIAN: REFERRING PHYSICIAN: SEBAS DE LA CRUZ MD DATE OF SERVICE: 08/24/18 Discharge Plan Patient Name: JL HUGHES Facility: [facility]:[place] : 1940 Planned Disposition: Fdc Facility Anticipated Discharge Date: Discharge Date: Expected LOS: Initial Reviewer: [email or web address] Initial Review Date: 08/21/2018 Generated: 08/24/18 5:47 pm Comments DCP- Discharge Planning Updated by [email or web address]: Cornelio Pennington on 08/24/18 3:[address] Patient Name: JL HUGHES Encounter No: [id number] : 1940 Primary Insurance: MEDICARE A & B Anticipated DC Date: Planned Disposition: Fdc Facility External Planned Provider: [facility], MEDICARE REHAB BED DCP follow-up note: CM RECEIVED REQUEST TO SPEAK TO PT AND DAUGHTER IN ROOM. PT PROVIDED PERMISSION TO SPEAK REGARDING HER DISCHARGE PLANNING AND CARE. PT'S DAUGHTER IN LAW, SAM HUGHES, WELL PT, FEEL PT NEEDS REHAB. CM DISCUSSED INPATIENT REHAB AND [facility]. PT WANTS REFERRAL CLOSE TO HER HOME, REQUESTED [facility]ERRAL TO [facility]. CHOICE SIGNED. IMPORTANT MESSAGE FROM MEDICARE PROVIDED AND EXPLAINED. CM FAXED REFERRAL TO [facility] AT [phone]. CM CALLED [facility], , LEFT MESSAGE FOR CATE OF ADMISSIONS NOTIFYING OF REFERRAL FOR REHAB SERVICES. CM WAITING ADMISSION DETERMINATION FROM [facility] FOR REHAB SERVICES. Cornelio Pennington DCP- Discharge Planning Updated by [id number]: Sophia Larson on 08/21/18 1:[address] Patient Name: JL HUGHES Admission Status: ER Accout number: [id number] Admission Date: 08-20-2018 : 1940 Admission Diagnosis: Attending: SEBAS DE LA CRUZ Current LOS: 1 Anticipated DC Date: Planned Disposition: Home Primary Insurance: MEDICARE A & B Discharge Planning Comments: CM met with patient to complete initial dc planning assessment. CM educated patient on the CM role and verbal consent given by patient to complete assessment. CM verified patient's address, phone number, and emergency contact phone numbers. Patient lives at home alone and reports she is independent in her care. At discharge patient plans to return home and feels this is a safe discharge. CM discussed availability of home health, rehab services, and medical equipment. Patient denied known discharge needs at this time.. . CM will continue to follow and will assist as needed with dc plans/needs. Career Services Assistant: Sophia Larson DCPIA - Discharge Planning Initial Assessment Updated by [email or web address]: Sophiamalick Perryman on 08/21/18 2:37 pm * Is the patient Alert and Oriented? Yes * How many steps to enter\exit or inside your home? * [facility] combs [facility] * Preadmission Environment Home with Family * ADLs Independent * Equipment Walker * List name and contact numbers for known caregivers / representatives who currently or will assist patient after discharge: sid Hooper [phone] * Verbal permission to speak to the caregivers and representatives has been obtained from the patient. Yes * Additional services required to return to the preadmission environment? No * Can the patient safely return to the preadmission environment? Yes * Has this patient been hospitalized within the prior 30 days at any hospital? No Coverage Notice Reviewer: [id number] Pennington Notice Issued Date-Time: 08/24/2018 12:05 Notice Type: Patient Choice Letter Notice Delivered To: Patient Relationship to Patient: Claims Auditor Name: Delivery Method: HAND - Hand Delivered Naida Days: Prior Verbal Notification: Recipient Understood Notice: Yes Recipient Signature: Yes Med Rec Note Co-signed by Attending: Coverage Notice Comment: [facility] Reviewer: [email or web address] Alejandrina Pennington Notice Issued Date-Time: 08/24/2018 12:05 Notice Type: IM Discharge Notice Notice Delivered To: Patient Relationship to Patient: Claims Auditor Name: Delivery Method: HAND - Hand Delivered Naida Days: Prior Verbal Notification: Recipient Understood Notice: Yes Recipient Signature: Yes Med Rec Note Co-signed by Attending: Coverage Notice Comment: Last DP export: 08/24/18 3:40 p Patient Name: JL HUGHES Page [phone] at 1648 All edits/amendments must be made on the electronic document DICTATION DATE: 08/24/181646 HEAD STILL OPERATOR: SARAI 08/24/181646 RPT#: [id number] DC DATE: STATUS: ADM IN [facility] [address] [place] [address] END OF REPORT
--- NOTE | 2018-08-24 19:22 | NUR ---
RESUMING PATIENT CARE. PATIENT IS ALERT AND ORIENTED. RESPIRATIONS ARE EVEN AND UNLABORED. NO S/S OF DISTRESS. NO C/O PAIN. CALL LIGHT WITHIN REACH. NEEDS MET. WILL CPOC.
[2018-08-24 20:00] VITALS: BP 120/63
[2018-08-25] VITALS: BP 107/73
[2018-08-25 04:00] VITALS: BP 116/61
[2018-08-25 05:31] LABS: BASOPHILS 0.9 % (0-2); EOSINOPHILS 4.2 % (0-7); HEMATOCRIT 42.7 % (36.0-48.0); IMMATURE GRANULOCYTES 0.4 % (0-5); MCH 29.6 pg (26.0-34.0); MCHC 32.8 g/dL (31.0-37.0); MCV 90.3 fL (80.0-100.0); MEAN PLATELET VOLUME 10.1 fL (7.4-10.4); MONOCYTES 12.9 % (2-11); NEUTROPHILS 45.6 % (40-80); PLATELET COUNT 182 10x3/uL (130-400); RBC 4.73 10x6/uL (4.00-5.40); RDW 13.5 % (11.5-14.5); WBC 6.8 10x3/uL (4.8-10.8)
[2018-08-25 05:44] LABS: ANION GAP 11.5 mmol/L (8-16); CALCIUM 8.2 mg/dL (8.5-10.1); CARBON DIOXIDE 32.9 mmol/L (21.0-32.0); CREATININE - SERUM 1.2 mg/dL (0.6-1.3); MAGNESIUM - SERUM 1.8 mg/dL (1.8-2.4); POTASSIUM - SERUM 3.4 mmol/L (3.5-5.1)
--- NOTE | 2018-08-25 07:30 | NUR ---
ASSESSMENT COMPLETED. ALERT AND ORIENTED. TELEMERY SHOWS CAF 86. FAMILY AT BEDSIDE. IV TO RIGHT HAND WITH CARDIZEM AT 10 AND BUMEX AT 2.5, DENIES ANY NEEDS. BEDALARM ON. WILL MONITOR
[2018-08-25 08:30] VITALS: BP 100/78
--- NOTE | 2018-08-25 10:59 | MORECARE ---
CASE MANAGEMENT DISCHARGE SUMMARY PATIENT: JL HUGHES UNIT: [id number] ADM DATE: 08/20/18 AGE: 78 : 39 SEX: F ROOM/BED: D.9239 AUTHOR: DOUGLAS,DOC PHYSICIAN: REFERRING PHYSICIAN: SEBAS DE LA CRUZ MD DATE OF SERVICE: 08/25/18 Discharge Plan Patient Name: JL HUGHES Facility: [facility]:[place] : 1940 Planned Disposition: Correction Facility Anticipated Discharge Date: Discharge Date: Expected LOS: Initial Reviewer: [email or web address] Initial Review Date: 08/21/2018 Generated: 08/25/18 11:58 am Comments DCP- Discharge Planning Updated by [id number]: Flakita Jones on 08/25/18 9:[address] LATE ENTRY 0901 CM SPOKE W/ LIV [facility]AFER FROM [facility] THIS AM. THE PATIENT HAS BEEN ON A CARDIZEM DRIP WHICH THEY WERE WEANING DOWN. THE PLAN IS TO CHANGE TO ORAL MEDICATION THIS AM. LIV STATES [facility] WILL ACCEPT THIS PATIENT ON TUESDAY IF ORAL TRANSITION GOES WELL. THEY DO NOT ACCEPT NEW PATIENTS OVER THE WEEKEND. DCP- Discharge Planning Updated by [email or web address]: Cornelio Pennington on 08/24/18 3:[address] Patient Name: JL HUGHES Encounter No: [id number] : 1940 Primary Insurance: MEDICARE A & B Anticipated DC Date: Planned Disposition: Correction Facility External Planned Provider: [facility], MEDICARE REHAB BED DCP follow-up note: CM RECEIVED REQUEST TO SPEAK TO PT AND DAUGHTER IN ROOM. PT PROVIDED PERMISSION TO SPEAK REGARDING HER DISCHARGE PLANNING AND CARE. PT'S DAUGHTER IN LAW, SAM HUGHES, WELL PT, FEEL PT NEEDS REHAB. CM DISCUSSED INPATIENT REHAB AND [facility]. PT WANTS REFERRAL CLOSE TO HER HOME, REQUESTED RE[facility]ERRAL TO [facility]. CHOICE SIGNED. IMPORTANT MESSAGE FROM MEDICARE PROVIDED AND EXPLAINED. CM FAXED REFERRAL TO [facility] AT [phone]. CM CALLED [facility], , LEFT MESSAGE FOR CATE OF ADMISSIONS NOTIFYING OF REFERRAL FOR REHAB SERVICES. CM WAITING ADMISSION DETERMINATION FROM [facility] FOR REHAB SERVICES. Cornelio Pennington DCP- Discharge Planning Updated by [id number]: Sophia Larson on 08/21/18 1:[address] Patient Name: JL HUGHES Admission Status: ER Accout number: [id number] Admission Date: 08-20-2018 : 1940 Admission Diagnosis: Attending: SEBAS DE LA CRUZ Current LOS: 1 Anticipated DC Date: Planned Disposition: Home Primary Insurance: MEDICARE A & B Discharge Planning Comments: CM met with patient to complete initial dc planning assessment. CM educated patient on the CM role and verbal consent given by patient to complete assessment. CM verified patient's address, phone number, and emergency contact phone numbers. Patient lives at home alone and reports she is independent in her care. At discharge patient plans to return home and feels this is a safe discharge. CM discussed availability of home health, rehab services, and medical equipment. Patient denied known discharge needs at this time.. . CM will continue to follow and will assist as needed with dc plans/needs. Biodiesel Engine Specialist: Sophia Lrason DCPIA - Discharge Planning Initial Assessment Updated by [id number]: Sophia Larson on 08/21/18 2:37 pm * Is the patient Alert and Oriented? Yes * How many steps to enter\exit or inside your home? * [facility]CP combs [facility] * Preadmission Environment Home with Family * ADLs Independent * Equipment Walker * List name and contact numbers for known caregivers / representatives who currently or will assist patient after discharge: sid Hooper [phone] * Verbal permission to speak to the caregivers and representatives has been obtained from the patient. Yes * Additional services required to return to the preadmission environment? No * Can the patient safely return to the preadmission environment? Yes * Has this patient been hospitalized within the prior 30 days at any hospital? No Coverage Notice Reviewer: [email or web address] Alejandrina Pennington Notice Issued Date-Time: 08/24/2018 12:05 Notice Type: Patient Choice Letter Notice Delivered To: Patient Relationship to Patient: Nurse School Name: Delivery Method: HAND - Hand Delivered Naida Days: Prior Verbal Notification: Recipient Understood Notice: Yes Recipient Signature: Yes Med Rec Note Co-signed by Attending: Coverage Notice Comment: [facility] Reviewer: [email or web address] Alejandrina Pennington Notice Issued Date-Time: 08/24/2018 12:05 Notice Type: IM Discharge Notice Notice Delivered To: Patient Relationship to Patient: Nurse School Name: Delivery Method: HAND - Hand Delivered Naida Days: Prior Verbal Notification: Recipient Understood Notice: Yes Recipient Signature: Yes Med Rec Note Co-signed by Attending: Coverage Notice Comment: Last DP export: 08/24/18 3:48 p Patient Name: JL HUGHES Page [phone] at 1059 All edits/amendments must be made on the electronic document DICTATION DATE: 08/25/18 1058 GLOBAL HUMAN RESOURCES DIRECTOR: SARAI 08/25/18 1058 RPT#: [id number] DC DATE: STATUS: ADM IN [facility] [address] [place] [address] END OF REPORT
[2018-08-25 12:44] VITALS: BP 117/57
[2018-08-25 15:12] VITALS: Ht 170.2 cm; Wt 95.6 kg
--- NOTE | 2018-08-25 15:12 | NUR ---
Nutrition follow-up: Diet: AHA PO intake ~50% of meals Labs reviewed RDN following.
--- NOTE | 2018-08-25 15:15 | NUR ---
I have reviewed this patient and I concur with the Shift Assessment completed by the Licensed Practical Nurse today this shift.
--- NOTE | 2018-08-25 18:00 | NUR ---
UP ON SIDE OF BED FOR DINNER. NO NEEDS VOICED. FAMILY AT BEDSIDE
--- NOTE | 2018-08-25 19:30 | NUR ---
RECEIVED REPORT, WILL ASSUME CARE OF PT, DENIES ANY NEEDS AT THIS TIME, VISITING WITH DAUGHTER, BED IS LOW, SRX2, CALL LIGHT IN REACH, WILL CONTINUE PLAN OF CARE
[2018-08-25 20:00] VITALS: BP 109/60
[2018-08-26] VITALS (15 sets, daily range): BP systolic 57–116; BP diastolic 34–96
--- NOTE | 2018-08-26 04:05 | NUR ---
I have reviewed this patient and I concur with the Shift Assessment completed by the Licensed Practical Nurse today this shift.
[2018-08-26 05:49] LABS: BASOPHILS 0.4 % (0-2); EOSINOPHILS 1.8 % (0-7); HEMATOCRIT 37.6 % (36.0-48.0); HEMOGLOBIN 12.3 g/dL (12-16); IMMATURE GRANULOCYTES 0.3 % (0-5); LYMPHOCYTES 15.1 % (15-50); MCH 29.4 pg (26.0-34.0); MCHC 32.7 g/dL (31.0-37.0); MCV 89.7 fL (80.0-100.0); MEAN PLATELET VOLUME 10.8 fL (7.4-10.4); MONOCYTES 9.9 % (2-11); NEUTROPHILS 72.5 % (40-80); PLATELET COUNT 188 10x3/uL (130-400); RBC 4.19 10x6/uL (4.00-5.40); RDW 13.3 % (11.5-14.5)
[2018-08-26 05:54] LABS: WBC 9.5 10x3/uL (4.8-10.8)
[2018-08-26 06:10] LABS: ANION GAP 11.4 mmol/L (8-16); CALCIUM 8.3 mg/dL (8.5-10.1); CARBON DIOXIDE 32.2 mmol/L (21.0-32.0); CREATININE - SERUM 1.4 mg/dL (0.6-1.3); POTASSIUM - SERUM 3.6 mmol/L (3.5-5.1)
[2018-08-26 06:12] LABS: MAGNESIUM - SERUM 2.4 mg/dL (1.8-2.4)
--- NOTE | 2018-08-26 08:39 | NUR ---
PT ABD DISTENDED AND BS HYPOACTIVE. PT STATES SHE HAS NOT HAD A BM SINCE TUESDAY. NOTIFIED ARUN COX AND NEW ORDER RECIEVED FOR MAG CITRATE NOW.
--- NOTE | 2018-08-26 08:41 | NUR ---
ARUN COX ASKED NURSE TO ORDER ABD XRAY AND HOLD MAG CITRATE UNTIL XRAY COMES BACK. IF XRAY SHOWS CONSTIPATION THEN GIVE THE MAG CITRATE
--- NOTE | 2018-08-26 16:30 | NUR ---
PT BP 70/50. NOTIFIED . NEW ORDER RECIEVED TO GIVE NS 500ML BOLUS
--- NOTE | 2018-08-26 17:07 | NUR ---
NOTIFIED OF BP OF 75/45. NEW ORDER RECIEVED TO TRANSFER PT TO ICU
--- NOTE | 2018-08-26 17:25 | NUR ---
RECEIVED PATIENT PER BED FROM ROOM 2212. AWAKE AND ALERT. ASK SAME QUESTIONS DAUGHTER IN LAW STATES SHE HAS DEMENTIA. SKIN COLD TEMP. BLOOD PRESSURE 57/46 ON ARRIVAL. HEART RATE 98 ATRIAL FLUTTER. OXYGEN AT 2 LITERS. ABD FIRM . ONLY COMPLIANTS IS NAUSEA. IV RIGHT HAND SALINE NO SWELLING OR REDNESS NOTED. DR. DE LA CRUZ NOTIFIED. ORDERS RECEIVED. ALBUMIN, D5NS AT 100 ML HOUR. CARDIAC ENZYMES. BEAR HUGGAR APPLIED.
--- NOTE | 2018-08-26 18:00 | NUR ---
VOMITTED 250 ML DARK LIQUID. ZOFRAN IV GIVEN.
--- NOTE | 2018-08-26 18:35 | NUR ---
PATIENT ASK THE SAME QUESTIONS RESTING WELL BEAR HUGGAR OFF. TEMP 97.6.
[2018-08-26 18:55] LABS: CKMB 0.8 U/L (0.0-3.6); CREATINE KINASE 83 UL (21-215); TROPONIN-I 0.023 ng/mL (0.000-0.060)
--- NOTE | 2018-08-26 19:00 | NUR ---
REPORT RECEIVED INITIAL ASSESSMENT COMPLETE PT HYPOTENSIVE AND C/O NAUSEA HAS BEEN GIVEN ZOFRAN PER DAY SHIFT PT STATED IT HELPED BUT ONLY A LITTLE. COOL CLOTH APPLIED TO HER NECK. CM WITH ALARMS ON AND AUDIBLE. WILL CONTINUE TO MONITOR
--- NOTE | 2018-08-26 20:45 | NUR ---
ANSWERED PTS CALL LIGHT SHE IS STATING SHE IS STILL NAUSEATED STATING THE MEDICINE FROM EARLIER DIDNT HELP MUCH. INFORMED DWORKIN OF PT STILL BEING HYPOTENSIVE BUT C/O PAIN TO LOWER ABD. NEW ORDERS NOTED.
--- NOTE | 2018-08-26 20:46 | NUR ---
PT CONFUSED FORGETFUL INFORMATICS SPECIALIST LIGHT STATES SHE NEEDS TO USE BATHROOM FEELS LIKE SHE NEEDS TO PEE PLACED ON BED COSTA
--- NOTE | 2018-08-26 20:50 | NUR ---
ANSWERED PTS CALL LIGHT. SHE HAS ALZHEIMERS AND HAS FORGOTTEN THAT SHE IS ON THE BED COSTA AND STATES SHE HAS TO USE BATHROOM. INFORMED TO GO AHEAD THAT I HAD JUST PLACED BED COSTA SHE ALSO C/O NAUSEA BUT ASKS FOR SOMETHING TO DRINK. INFORMED THAT WILL GIVE MEDS SOON POSSIBLE THAT DR DE LA CRUZ DID ORDER TYLENOL BUT DUE TO HER BEING SO HYPERTENSIVE UNABLE TO GIVE ANY NARCOTIC WITHOUT DROPPING BP FURTHER
--- NOTE | 2018-08-26 21:00 | NUR ---
AWAITING ENVELOPE PRESS OPERATOR TO GET NEW MEDS OUT OF [facility]. THESE ARE NEW MEDS AND UNVERIFIED PER PHARMACY SO HAVE TO HAVE ENVELOPE PRESS OPERATOR TO GET OUT OF [facility] WILL GIVE MEDS SOON ABLE
--- NOTE | 2018-08-26 21:05 | NUR ---
PT MOAINING THAT SHE IS HOT AND NAUSEATED AND HURTING.
--- NOTE | 2018-08-26 21:23 | NUR ---
CIERA BERGERPLASTICS SCIENTIST HERE MEDICATIONS OBTAINED FROM [facility] SEE EMAR.
--- NOTE | 2018-08-26 22:00 | NUR ---
PT STATES MEDICATION WAS MAKING HER FEEL BETTER SHE WAS NOT NAUSEATED
--- NOTE | 2018-08-26 23:00 | NUR ---
REASSESSMENT MADE SEE FLOWSHEET. PT RESTING QUIETLY AWAKENS EASILY TO VERBAL STIMULI STATES "[place]" WHEN ASKED IF SHE REMEMBERED WHERE SHE WAS. DENIES NAUSEA AT THIS TIME. PT CONTINUES TO BE HYPOTENSIVE WITH SBP DROPPING TO 80'S DOES INCREASE UP TO LOW 100'S AT TIMES. SEE ASSESSMENT FLOWSHEET CPOC
[2018-08-27] VITALS (14 sets, daily range): BP systolic 74–104; BP diastolic 21–85
[2018-08-27 00:46] LABS: CKMB 0.7 U/L (0.0-3.6); CREATINE KINASE 100 UL (21-215); TROPONIN-I 0.053 ng/mL (0.000-0.060)
--- NOTE | 2018-08-27 01:00 | NUR ---
CHECKING ON PATIENT RESTING QUIETLY. HYPOTENSION CONTINUES. WILL CONTINUE TO MONITOR CLOSELY.
--- NOTE | 2018-08-27 03:00 | NUR ---
REASSESSMENT MADE PT PALE ORIENTED TO PERSON AND PLACE FOLLOWS COMMANDS WITH EQUAL STRENGTH. STILL WEAK HAS STATED SHE NEEDS TO USE BATHROOM ATTEMPT TO PLACE MONTENEGRO PT HAS NOT BEEN ABLE TO URINATE. MONTENEGRO PLACED BUT NO RETURN OF URINE WILL REASSESS
--- NOTE | 2018-08-27 04:00 | NUR ---
COMPLETE CHG BED BATH AND LINEN CHANGE
--- NOTE | 2018-08-27 04:30 | NUR ---
20 GUAGE IV RIGHT ARM AFTER 3 ATTEMPTS
[2018-08-27 04:56] LABS: CALC OSMOLALITY 293 mosm/kg (275-300); CALCIUM 7.8 mg/dL (8.5-10.1); CARBON DIOXIDE 28.9 mmol/L (21.0-32.0); CHLORIDE - SERUM 99 mmol/L (98-107); CREATINE KINASE 114 UL (21-215); CREATININE - SERUM 3.5 mg/dL (0.6-1.3); GLUCOSE 183 mg/dL (74-106); MAGNESIUM - SERUM 3.4 mg/dL (1.8-2.4); POTASSIUM - SERUM 4.5 mmol/L (3.5-5.1); SODIUM 138 mmol/L (136-145); TROPONIN-I 0.056 ng/mL (0.000-0.060); UREA NITROGEN 48 mg/dL (7-18); eGFR NON AFRICAN AMERICAN 13 mL/min (90-120)
--- NOTE | 2018-08-27 05:00 | NUR ---
CHARGE NURSE ROWENA AND THIS RN IN TO IRRIGATE MONTENEGRO. 60 CC SALINE FLUSHED EASILY BUT ONLY RETURN OF 20 CC SEROSANGUINOUS. ALEA RN PLACED 14 FR MONTENEGRO STILL NO RETURN OF URINE. BLADDER SCANNER OBTAINED AND SCAN RESULT OF 830 CC AND 830 CC. IRRIGATED STILL NO RETURN OF URINE.
--- NOTE | 2018-08-27 05:00 | NUR ---
NO URINE NOTED TO MONTENEGRO ATTEMPT TO PLACE 14 BURKINAN WITH 2 ICU RNS ASSISSTING APPEARS TO BE IN POSITION STILL NO URINE
[2018-08-27 05:46] LABS: BASOPHILS 0.1 % (0-2); EOSINOPHILS 0 % (0-7); IMMATURE GRANULOCYTES 1.4 % (0-5); LYMPHOCYTES 18.6 % (15-50); MCH 29.1 pg (26.0-34.0); MCHC 32.5 g/dL (31.0-37.0); MCV 89.5 fL (80.0-100.0); MEAN PLATELET VOLUME 10.6 fL (7.4-10.4); MONOCYTES 12.1 % (2-11); NEUTROPHILS 67.8 % (40-80); PLATELET COUNT 171 10x3/uL (130-400); RBC 2.37 10x6/uL (4.00-5.40); RDW 13.4 % (11.5-14.5); WBC 13.8 10x3/uL (4.8-10.8)
[2018-08-27 05:47] LABS: HEMATOCRIT 21.2 % (36.0-48.0); HEMOGLOBIN 6.9 g/dL (12-16)
--- NOTE | 2018-08-27 05:51 | NUR ---
CRITICAL LAB LEVELS DROP IN HGB CALLED TO DR DE LA CRUZ ALSO INFORMED OF URINE OUTPUT AND BLEEDING NOTED IN TUBE WHEN ATTEMPTING MONTENEGRO INSERTION
--- NOTE | 2018-08-27 05:55 | NUR ---
CALLED TO INFORM DR AUGUST OF CONSULT FROM DR DE LA CRUZ INFORMED UROLOGY ANSWERING SERVICE OF STAT CONSULT
--- NOTE | 2018-08-27 06:22 | NUR ---
DR AUGUST CALLED UNIT STATED HE WAS UNAVAILABLE OUT OF TOWN WOULD NOT BE BACK UNTIL TUESDAY AFTERNOON.
--- NOTE | 2018-08-27 06:25 | NUR ---
DR DE LA CRUZ INFORMED BY PHONE THAT DR AUGUST UNAVAILABLE. HE STATED TO CALL TRANSFER CENTER TO GET PT TRANSFERRED TO FACILITY WITH UROLOGIST.
--- NOTE | 2018-08-27 06:32 | NUR ---
CALLED TRANSFER CENTER [phone] SPOKE WITH IRMA. INFORMED OF PT STATUS SHE STATED SHE WOULD CALL BACK WHEN FACILITY FOUND
--- NOTE | 2018-08-27 06:35 | NUR ---
DR DE LA CRUZ CALLED BACK WHILE THIS RN WAS ON PHONE WITH TRANSFER CENTER AND SPOKE WITH ROWENA MAHONEY CHARGE NURSE STATED TO PLACE CBI. CONTINUOUS BLADDER IRRIGATION,
--- NOTE | 2018-08-27 06:45 | NUR ---
ROWENA MAHONEY SPOKE WITH CIERA BERGER SUPERVISOR THAT A CONTINUOUS BLADDER IRRIGATION CATHETER WAS NEEDED
--- NOTE | 2018-08-27 07:00 | NUR ---
PATIENT AWAKES EASILY TO VERBAL SIMULI SKIN COOL AND DRY. PATIENT KNOWS WHERE SHE IS REORIENTATES EASILY. VERY FORGETFUL , WILL ASK THE SAME QUESTIONS REPEATLY. BUT REMEMBERS WHERE SHE IS. IV RIGHT FOREARM SALINE LOCK. RIGHT WRIST INFUSING WITH D5NS AT 100 ML HOUR. MONTENEGRO WITH PINK URINE IN BAG SMALL AMOUNT. MONITOR AFIB ATRIAL FLUTTER WITH RATE BELOW 120. OXYGEN AT 2 LITERS PER NC.
--- NOTE | 2018-08-27 07:30 | NUR ---
FIRST UNIT BLOOD STARTED. IN RIGHT FOREARM. NO REACTION NOTED.
--- NOTE | 2018-08-27 08:00 | NUR ---
MONTENEGRO CATH FOR CBI INSERTED IN QUALITY SPECIALIST 16 FR.GOOD SITE OF URINARY MEATUS CLEAN WITH BETADINE. NO DIFFICULTY INSERTING MONTENEGRO. RETURN OF PINK FLUID. 1999LITER BACK OF NS STARTED INFUSING IN BLADDER. WITH PINK RETURNED RECEIVED. PATIENT TOLERATED WELL NO REACTION BLOOD INFUSING FAMILY AT BEDSIDE UPDATE GIVEN.
--- NOTE | 2018-08-27 08:10 | NUR ---
BLADDER SCAN DONE, SHOWING OVER 900CC URINE IN BLADDER. DR. SPAULDING NOTIFIED. ORDERS FOR CT SCAN OF ABD AND PELVIS. RECEIVED. IRRIGATION INTO BLADDER RETURNED PINK LIQUID.
--- NOTE | 2018-08-27 08:30 | NUR ---
ABD ULTRASOUND IN PROGRESS.
--- NOTE | 2018-08-27 09:00 | NUR ---
TO CT SCAN PER BED. AWAKE AND ALERT. PATIENT VERY COOPERATIVE.
--- NOTE | 2018-08-27 09:30 | NUR ---
2ND UNIT OF BLOOD STARTED. PATIENT NAPPING AT INTERVALS. STATES SHE NEEDS TO PEE AT TIMES. INSTRUCTED TO GO AHEAD. STATES SHE IS UNABLE TO PEE. NO DISTRESS.
--- NOTE | 2018-08-27 10:00 | NUR ---
RADIOLOGY CALLED STATES MONTENEGRO CATH IS IN VAGINA. SEVERAL NURSES ATTEMPTED TO FINE ANOTHER URINARY MEATUS TO INSERT A MONTENEGRO CATH NONE FOUND. DR. DE LA CRUZ CALLED AND NOTIFIED. STATES HE WILL ATTEMPT WHEN HE GETS HERE.
--- NOTE | 2018-08-27 11:00 | NUR ---
DR. DE LA CRUZ ATTEMPTED TO LOOK FOR ANOTHER MEATUS TO INSERT MONTENEGRO CATH COULD NOT FIND ONE. [facility]SFER C[facility] NOTIFIED OF NEED TO FIND HOSPITAL WITH BED AND UROLOGIST AVAILABLE. PATIENT INFORMATION SENT TO [facility] AND IN [facility]. IN [facility] DOES NOT HAVE A BED AVAILABLE AT THIS TIME.
--- NOTE | 2018-08-27 11:15 | NUR ---
2 ND UNIT OF BLOOD COMPLETED. NO REACTION TO BLOOD NOTED. PATIENT TOLERATED WELL. FOLLOW UP H&H ORDERED.
--- NOTE | 2018-08-27 11:44 | NUR ---
MD NOTIFIED OF REPEAT H&h RESULTS. FAMILY AT BEDSIDE. QUESTIONS ANSWERED. PATIENT RESTING COMFORTABLY NO DISTRESS.
[2018-08-27 11:46] LABS: HEMATOCRIT 29.9 % (36.0-48.0); HEMOGLOBIN 9.9 g/dL (12-16)
--- NOTE | 2018-08-27 12:00 | NUR ---
[facility] [place] HAS ACCEPTED PATIENT. [facility] NOTIFIED OF NEED TO TRANSFER. THEN [facility] [place] CALLED AND STATES THEY HAVE A BED AVAILABLE. FAMILY UPDATED. REPORT CALLED TO DIONNE TO TRANSFER TO ROOM 382 CIU AT [facility] IN [place] PER AMBULANCE SERVICES OF DR. SERRANO. AWAITING AMBULANCE ARRIVAL.
--- NOTE | 2018-08-27 13:00 | NUR ---
PATIENT TRANSFERED TO [facility] FOR BLADDER DISTENTION PER AMBULANACE NO UROLOGIST AVALIABLE HERE. FAMILY HERE. PATIENT AWAKE AND ALERT
--- NOTE | 2018-08-28 15:14 | MORECARE ---
CASE MANAGEMENT DISCHARGE SUMMARY PATIENT: JL HUGHES UNIT: [id number] ADM DATE: 08/20/18 AGE: 78 : 38 SEX: F ROOM/BED: D.2304 AUTHOR: DOUGLAS,DOC PHYSICIAN: REFERRING PHYSICIAN: SEBAS DE LA CRUZ MD DATE OF SERVICE: 08/28/18 Discharge Plan Patient Name: JL HUGHES Facility: [facility]:[place] : 1940 Planned Disposition: Senior Living Facility Anticipated Discharge Date: Discharge Date: 08/27/2018 Expected LOS: Initial Reviewer: [id number] Initial Review Date: 08/21/2018 Generated: 08/28/18 4:14 pm Comments DCP- Discharge Planning Updated by [id number]: Flakita Jones on 08/25/18 9:[address] LATE ENTRY 0901 CM SPOKE W/ LIV SH[facility]ER FROM [facility] THIS AM. THE PATIENT HAS BEEN ON A CARDIZEM DRIP WHICH THEY WERE WEANING DOWN. THE PLAN IS TO CHANGE TO ORAL MEDICATION THIS AM. LIV STATES [facility] WILL ACCEPT THIS PATIENT ON TUESDAY IF ORAL TRANSITION GOES WELL. THEY DO NOT ACCEPT NEW PATIENTS OVER THE WEEKEND. DCP- Discharge Planning Updated by [id number]: Cornelio Pennington on 08/24/18 3:[address] Patient Name: JL HUGHES Encounter No: [id number] : 1940 Primary Insurance: MEDICARE A & B Anticipated DC Date: Planned Disposition: Senior Living Facility External Planned Provider: [facility], MEDICARE REHAB BED DCP follow-up note: CM RECEIVED REQUEST TO SPEAK TO PT AND DAUGHTER IN ROOM. PT PROVIDED PERMISSION TO SPEAK REGARDING HER DISCHARGE PLANNING AND CARE. PT'S DAUGHTER IN LAW, SAM HUGHES, WELL PT, FEEL PT NEEDS REHAB. CM DISCUSSED INPATIENT REHAB AND SENIOR CARE REHAB. PT WANTS REFERRAL CLOSE TO HER HOME, REQUESTED REFERRAL TO [facility]. CHOICE SIGNED. IMPORTANT MESSAGE FROM MEDICARE PROVIDED AND EXPLAINED. CM FAXED REFERRAL TO [facility] AT [phone]. CM CALLED [facility], , LEFT MESSAGE FOR CATE OF ADMISSIONS NOTIFYING OF REFERRAL FOR REHAB SERVICES. CM WAITING ADMISSION DETERMINATION FROM [facility] FOR REHAB SERVICES. Cornelio Pennington DCP- Discharge Planning Updated by [id number]: Sophia Larson on 08/21/18 1:[address] Patient Name: JL HUGHES Admission Status: ER Accout number: [id number] Admission Date: 08-20-2018 : 1940 Admission Diagnosis: Attending: SEBAS DE LA CRUZ Current LOS: 1 Anticipated DC Date: Planned Disposition: Home Primary Insurance: MEDICARE A & B Discharge Planning Comments: CM met with patient to complete initial dc planning assessment. CM educated patient on the CM role and verbal consent given by patient to complete assessment. CM verified patient's address, phone number, and emergency contact phone numbers. Patient lives at home alone and reports she is independent in her care. At discharge patient plans to return home and feels this is a safe discharge. CM discussed availability of home health, rehab services, and medical equipment. Patient denied known discharge needs at this time.. . CM will continue to follow and will assist as needed with dc plans/needs. Ocean Freight Manager: Sophia Larson DCPIA - Discharge Planning Initial Assessment Updated by [id number]: Sophia Larson on 08/21/18 2:37 pm * Is the patient Alert and Oriented? Yes * How many steps to enter\exit or inside your home? * PCP combs * [facility] * Preadmission Environment Home with Family * ADLs Independent * Equipment Walker * List name and contact numbers for known caregivers / representatives who currently or will assist patient after discharge: sid Hooper [phone] * Verbal permission to speak to the caregivers and representatives has been obtained from the patient. Yes * Additional services required to return to the preadmission environment? No * Can the patient safely return to the preadmission environment? Yes * Has this patient been hospitalized within the prior 30 days at any hospital? No Coverage Notice Reviewer: [id number] Alejandrina Pennington Notice Issued Date-Time: 08/24/2018 12:05 Notice Type: Patient Choice Letter Notice Delivered To: Patient Relationship to Patient: Gasket Winder Name: Delivery Method: HAND - Hand Delivered Naida Days: Prior Verbal Notification: Recipient Understood Notice: Yes Recipient Signature: Yes Med Rec Note Co-signed by Attending: Coverage Notice Comment: [facility] Reviewer: [id number] - Cornelio [place] Notice Issued Date-Time: 08/24/2018 12:05 Notice Type: IM Discharge Notice Notice Delivered To: Patient Relationship to Patient: Gasket Winder Name: Delivery Method: HAND - Hand Delivered Naida Days: Prior Verbal Notification: Recipient Understood Notice: Yes Recipient Signature: Yes Med Rec Note Co-signed by Attending: Coverage Notice Comment: Last DP export: 08/25/18 9:59 a Patient Name: JL HUGHES Page [phone] at 1514 All edits/amendments must be made on the electronic document DICTATION DATE: 08/28/18 1514 SCOW CAPTAIN: SARAI 08/28/18 1514 RPT#: [id number] DC DATE:08/27/18 STATUS: DIS IN [facility] [address] [place] [address] END OF REPORT
== END 2018-08-27 13:00 | DRG 291 ==
LOC: D.ER 16:50 → D.M2 18:38 → D.ICU 18:38
PROVIDERS: Emergency Medicine; ADMIT Internal Medicine Nephrology; ATTEND Internal Medicine Nephrology
DX: I11.0 Hypertensive heart disease with heart failure (principal); J96.01 Acute respiratory failure with hypoxia; N17.9 Acute kidney failure, unspecified; I48.0 Paroxysmal atrial fibrillation; I50.41 Acute combined systolic (congestive) and diastolic (congestive) heart failure; I08.1 Rheumatic disorders of both mitral and tricuspid valves; E87.6 Hypokalemia; Z87.891 Personal history of nicotine dependence